=== PATIENT | male | born 1990 | race Caucasian/White ===

== ENCOUNTER 2019-06-18 01:14 | Emergency (ER) | payer MEDICAID, OTHER ==
[~2019-06-18] VITALS: Ht 167.6 cm; Wt 79.5 kg
[2019-06-18 01:15] VITALS: BP 152/96
--- NOTE | 2019-06-18 01:23 | NUR ---
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
== END 2019-06-18 01:38 | disposition home or self-care (01) ==
LOC: ER 01:15
DX: S21.231A Puncture wound without foreign body of right back wall of thorax without penetration into thoracic cavity, initial encounter (principal); S31.139A Puncture wound of abdominal wall without foreign body, unspecified quadrant without penetration into peritoneal cavity, initial encounter; H10.213 Acute toxic conjunctivitis, bilateral; Z88.0 Allergy status to penicillin; X58.XXXA Exposure to other specified factors, initial encounter; Y93.89 Activity, other specified; Y92.89 Other specified places as the place of occurrence of the external cause; Y99.8 Other external cause status
CPT/HCPCS: 99283

== ENCOUNTER 2019-10-13 06:02 | Emergency (ER) | payer OTHER ==
[~2019-10-13] VITALS: Ht 167.6 cm; Wt 75.0 kg
[2019-10-13 06:57] VITALS: BP 120/68
== END 2019-10-13 06:59 ==
LOC: ER 06:03
DX: Z02.89 Encounter for other administrative examinations (principal); F17.210 Nicotine dependence, cigarettes, uncomplicated; Z88.0 Allergy status to penicillin
CPT/HCPCS: 99283

== ENCOUNTER 2020-03-26 21:42 | Emergency (ER) | payer OTHER ==
[~2020-03-26] VITALS: Ht 167.6 cm; Wt 72.7 kg
[2020-03-26 21:45] VITALS: BP 125/75
[2020-03-26] MEDS ORDERED: mupirocin 2% ointment 22GM TP STA (22:11)
== END 2020-03-26 23:51 | disposition home or self-care (01) ==
LOC: ER 21:42
DX: M79.671 Pain in right foot (principal); M79.672 Pain in left foot; Z72.89 Other problems related to lifestyle; Z59.0 Homelessness; Z88.0 Allergy status to penicillin
CPT/HCPCS: 99283